=== PATIENT | male | born 1955 | race African-American/Black ===

== ENCOUNTER 2022-09-04 23:32 | Emergency (ER) | payer OTHER, SELFPAY ==
--- NOTE | ~2022-09-04 | CT_ITS ---
EXAMINATION: CT thoracic lumbar wo con DATE: 09/05/2022 02:19 INDICATION: Unwitnessed fall. Back pain. TECHNIQUE: Computed tomography (CT) of the thoracic and lumbar spine was performed without intravenou s contrast. Automated exposure control and iterative reconstruction technique were employed. Exam dos e: 2049.79 mGy-cm total exam DLP. COMPARISON: None FINDINGS: Incidentally noted is bullous emphysema. Degenerative disease of the lower cervical spine. There is degenerative spurring of the thoracic spine. No thoracic spine fracture or dislocation or doreen ne destruction is detected. There are bilateral L5 pars interarticularis defects with grade 1 anterolisthesis at L5-S1. There is severe degenerative disc disease at L5-S1. The remaining lumbar interspaces are well preserved. There is degenerative spurring throughout the lyndsey mbar spine. Degenerative change at the lumbar apophyseal joints as well. The sacroiliac joints are intact.. IMPRESSION: Degenerative spurring of the thoracic spine Bilateral L5 pars interarticularis defects with grade 1 anterolisthesis at L5-S1 Severe degenerative disc disease at L5-S1 Reviewed, dictated and finalized at [facility]. Reviewed, dictated and finalized at [facility]. LE AND HEEL STIFFENER IMPRESSION: Degenerative spurring of the thoracic spine Bilateral L5 pars interarticularis defects with grade 1 anterolisthesis at L5-S 1 Severe degenerative disc disease at L5-S1
--- NOTE | ~2022-09-04 | CT_ITS ---
EXAMINATION: CT brain wo con DATE: 09/05/2022 02:18 INDICATION: Fall TECHNIQUE: Computed tomography (CT) of the head was performed without intravenous contrast. The mA wa s adjusted according to patient size. Iterative reconstruction technique was employed. Exam dose: 10 59.33 mGy-cm total exam DLP. COMPARISON: None FINDINGS: Examination is limited due to motion artifact. Status post bilateral upper convexity craniotomies There is an acute subdural hematoma in the left frontal parietal area, measuring up to 7 mm thickness . There is central and cortical cerebral and cerebellar atrophy. Cerebral atherosclerosis and probable chronic small vessel ischemic changes of the cerebral white mat ter. No intracranial mass lesion or significant midline shift or mass effect is noted. IMPRESSION: 7 mm thick acute left frontoparietal subdural hematoma Cerebral atherosclerosis and chronic small vessel ischemic changes of the cerebral white matter Status post bilateral upper convexity craniotomies Reviewed, dictated and finalized at [facility]. Reviewed, dictated and finalized at [facility]. RANCE PROCESSING CLERK IMPRESSION: 7 mm thick acute left frontoparietal subdural hematoma Cerebral atherosclerosis and chronic small vessel ischemic changes of the cereb ral white matter Status post bilateral upper convexity craniotomies
--- NOTE | ~2022-09-04 | CT_ITS ---
EXAMINATION: CT cervical spine wo con DATE: 09/05/2022 02:19 INDICATION: Unwitnessed fall. Neck and back pain TECHNIQUE: Computed tomography (CT) of the cervical spine was performed without intravenous contrast. Automated exposure control and iterative reconstruction technique were employed. Exam dose: 301.68 mGy-cm total exam DLP. COMPARISON: None FINDINGS: Incomplete posterior C1 arch, likely congenital.. There is reversal of cervical curvature which may be due to muscle spasm and/or positioning. C1 and C2 are normally aligned and the odontoid process is intact. No fracture or dislocation or locked facet or prevertebral soft tissue swelling. Prominent anterior spurring is noted from C3 through the upper thoracic spine, with severe degenerati ve disc disease/intervertebral disc space loss of height at C5-6 and C6-7. There is prominent uncovertebral joint spurring from throughout the cervical spine. Bullous emphysema is noted at the lung apices. IMPRESSION: Reversal cervical curvature Prominent cervical spondylosis No fracture or dislocation or locked facet Bullous emphysema Reviewed, dictated and finalized at [facility]. Reviewed, dictated and finalized at location [facility]. ECHNICIAN
[2022-09-04 23:28] VITALS: BP 135/104; PULSE 74; RESP 18; TEMP 36.4; O2SAT 100
--- NOTE | 2022-09-04 23:45 | ED.FALL ---
HPI - Fall General Chief Complaint: Fall Stated Complaint: unwitt fall from w/c, c/o back pain Time Seen by Provider: 09/04/22 23:35 History of Present Illness HPI Narrative: Patient is a 67-year-old male with a history of dementia, schizophrenia presenting after an unwitnessed fall. Patient is a nursing facility resident and he fell from his wheelchair in a common area. It was unwitnessed. Afterwards, he was complaining of lower back pain. Patient is a very poor historian due to his dementia and schizophrenia. He is yelling unintelligibly. States that he wants to give the nurse peanut butter. Moving all extremities spontaneously. Related Data Home Medications Medication Instructions Recorded Confirmed bisacodyl 5 mg tablet,delayed mg PO 09/04/22 release docusate sodium 100 mg capsule mg PO 09/04/22 hydrochlorothiazide 12.5 mg tablet mg 09/04/22 hydroxyzine pamoate 25 mg capsule mg 09/04/22 losartan 25 mg tablet mg 09/04/22 magnesium citrate (Citroma oral ml 09/04/22 solution) magnesium hydroxide 400 mg/5 mL 09/04/22 oral suspension (Milk of Magnesia) risperidone 0.25 mg tablet mg 09/04/22 risperidone 0.5 mg tablet mg 09/04/22 (Risperdal) risperidone 1 mg tablet (Risperdal) mg 09/04/22 trazodone 50 mg tablet mg 09/04/22 Allergies Allergy/AdvReac Type Severity Reaction Status Date / Time No Known Allergies Allergy Verified 09/04/22 23:37 Review of Systems Review of Systems: ROS unobtainable: Yes unobtainable due to mental status Exam Narrative: GENERAL: Elderly man calling out unintelligibly HEAD: Normocephalic, atraumatic. EYES: PERRLA and EOMI. ENT: Nares clear, no rhinorrhea or epistaxis. Mucous membranes moist. NECK: C-collar in place CHEST: Clear to auscultation. No respiratory distress. HEART: Regular rate and rhythm. No murmur heard. Normal peripheral pulses. ABDOMEN: Soft, nontender, nondistended, normal active bowel sounds. BACK: Mild tenderness of lower lumbar spine EXTREMITIES: Normal range of motion. No edema. SKIN: Warm, dry, no rash. NEURO: Moving all extremities spontaneously, calling out nonsensical things Course Vital Signs Vital signs: Vital Signs Temperature 97.6 F 09/04/22 23:28 Pulse Rate 74 09/04/22 23:28 Respiratory Rate 18 09/04/22 23:28 Blood Pressure 135/104 H 09/04/22 23:28 Pulse Oximetry 100 09/04/22 23:28 Oxygen Delivery Room Air 09/04/22 23:28 Temperature 97.6 F 09/04/22 23:28 Pulse Rate 71 09/05/22 05:45 Respiratory Rate 14 09/05/22 05:45 Blood Pressure 127/79 09/05/22 05:45 Pulse Oximetry 98 09/05/22 05:45 Oxygen Delivery Room Air 09/04/22 23:28 MDM - Fall MDM Narrative Medical decision making narrative: Patient is a 67-year-old male presenting after an unwitnessed fall at his nursing facility. CT head concerning for left-sided subdural hematoma. There do not appear to be any new neurologic deficits but the patient is unable to participate with a neuro exam due to his baseline dementia and schizophrenia. I spoke with our neurosurgeon who advises he be transferred to higher level of care. I spoke with Dr. Dolan at [facility] who has accepted the patient for transfer. Patient transferred in serious condition. Lab Data 09/05/22 04:23 09/05/22 04:23 Labs: Lab Results 09/05/22 09/05/22 09/05/22 Range/Units 04:23 04:23 04:23 WBC 4.9 (4.5-10.0) K/mm3 RBC 3.52 L (4.6-6.20) M/mm3 Hgb 10.4 L (14.0-18.0) g/dL Hct 31.8 L (42.0-52.0) % MCV 90.3 (80-100) fl MCH 29.5 (26-34) pg MCHC 32.7 (32-36) g/dl RDW 13.5 (11.5-14.5) % Plt Count 181 (150-375) k/mm3 MPV 9.6 (7.4-10.4) fl Immature Gran % (Auto) 0.2 (0-0.5) % Neut % (Auto) 46.0 (45.5-73.1) % Lymph % (Auto) 43.5 (18.3-44.2) % [place] % (Auto) 8.7 H (2.6-8.5) % Eos % (Auto) 1.4 (0-4.4) % Baso % (Auto) 0.2 (0.2-1.2) % Lymph # (Auto) 2.15
--- NOTE | 2022-09-05 01:10 | PC.NURSE ---
Assumed care of pt at this time.
[2022-09-05 04:22] VITALS: BP 122/77; PULSE 90; RESP 18; O2SAT 100
[2022-09-05 04:32] LABS: Basophils Percent Auto 0.2 % (0.2-1.2); Eosinophils Absolute Auto 0.1 K/mm3 (0-0.3); Eosinophils Percent Auto 1.4 % (0-4.4); Hematocrit 31.8 % (42.0-52.0); Hemoglobin 10.4 g/dL (14.0-18.0); Immature Granulocyte Absolute 0.01 K/mm3 (0.00-0.031); Immature Granulocyte Percent A 0.2 % (0-0.5); Lymphocytes Absolute Auto 2.15 K/mm3 (0.9-3.2); Lymphocytes Percent Auto 43.5 % (18.3-44.2); Mean Corpuscular HGB Conc 32.7 g/dl (32-36); Mean Corpuscular Hemoglobin 29.5 pg (26-34); Mean Corpuscular Volume 90.3 fl (80-100); Mean Platelet Volume 9.6 fl (7.4-10.4); Monocytes Absolute Auto 0.4 K/mm3 (0.1-0.6); Monocytes Percent Auto 8.7 % (2.6-8.5); Neutrophils Absolute Auto 2.3 K/mm3 (1.3-6.7); Platelet Count Result 181 k/mm3 (150-375); Red Blood Count 3.52 M/mm3 (4.6-6.20); Red Cell Distribution Width 13.5 % (11.5-14.5); White Blood Count 4.9 K/mm3 (4.5-10.0)
--- NOTE | 2022-09-05 04:37 | PC.NURSE ---
pt.'s neuro status unchanged since arrival; and upon arrival at baseline per EMS based on information received from [facility]. Pt.'s quality of speech normal if he is not yelling; speech rambling, random and inappropriate. Pt. oriented to self only. Moving all extremities.
[2022-09-05 04:42] LABS: INR 1.1; Prothrombin Time 13.8 Seconds (11.1-14.7)
[2022-09-05 04:43] LABS: Partial Thromboplastin Time 34.5 SECONDS (22.3-36.8)
[2022-09-05 04:44] LABS: Anion Gap 8 mmol/L (8-16); Blood Urea Nitrogen 26 mg/dL (9-20); Calcium 8.2 mg/dL (8.4-10.2); Carbon Dioxide 26 mmol/L (22-30); Chloride 102 mmol/L (98-107); Estimated Glomerular Filt Rate > 60; Glucose 129 mg/dL (65-110); Potassium 3.8 mmol/L (3.4-5.0); Sodium 136 mmol/L (137-145)
[2022-09-05 05:12] VITALS: BP 111/75; PULSE 73; RESP 16
--- NOTE | 2022-09-05 05:13 | PC.NURSE ---
Attempted to call report to [facility] ED at this time. Was told to call back in 20-30 minutes as no one was available to take report.
[2022-09-05 05:45] VITALS: BP 127/79; PULSE 71; RESP 14; O2SAT 98
== END 2022-09-05 05:45 | disposition short-term general hospital (02) ==
PROVIDERS: Emergency Provider Emergency Medicine
DX: S06.5XAA Traumatic subdural hemorrhage with loss of consciousness status unknown, initial encounter (principal); F03.911 Unspecified dementia, unspecified severity, with agitation; F20.9 Schizophrenia, unspecified; W05.0XXA Fall from non-moving wheelchair, initial encounter
CPT/HCPCS: 36415; 70450; 72125; 72128; 72131; 80048; 85025; 85610; 85730; 96365; 99285; J0131

== ENCOUNTER 2022-11-13 11:15 | Observation (INO) | payer OTHER, SELFPAY ==
[2022-11-13] VITALS (12 sets, daily range): BP systolic 117–162; BP diastolic 63–109; PULSE 56–94; RESP 10–20; TEMP 36.5–36.7; O2SAT 97–100; BMI 24.7
--- NOTE | ~2022-11-13 | CT_ITS ---
EXAMINATION: CT brain wo con INDICATION: Headache COMPARISON: 09/05/2022 TECHNIQUE: Standard unenhanced head CT. The dose-length product (DLP) was 908.00 mGy-cm. The mA was a djusted according to patient size. Iterative reconstruction technique was employed. FINDINGS: There is a small, chronic appearing left subdural hematoma with decrease in size since the comparison CT. There is no acute intraparenchymal hemorrhage. No evidence of mass lesion. No evidence of acute infarction. There is mild periventricular and subcortical hypodensity probably related to s mall vessel ischemic disease. There is mild prominence of the sulci and ventricles related to cerebra l atrophy. Intracranial calcified cerebral atherosclerosis is noted. There is no mass effect or midli ne shift. The orbits and soft tissues are unremarkable. There is mild mucosal thickening of the paran gladys sinuses. There are bifrontal craniotomy changes. IMPRESSION: 1. Chronic left subdural hematoma with decrease in size since the comparison CT. 2. Age related findings. Reviewed, dictated and finalized at location [facility]. GER NIGHT IMPRESSION: 1. Chronic left subdural hematoma with decrease in size since the comparison CT . 2. Age related findings.
--- NOTE | ~2022-11-13 | XR_ITS ---
Supine and upright views of the abdomen Clinical history: Abdominal pain Findings: Bowel gas pattern is nonspecific. No evidence for obstruction or free air. No abnormal mass lesion or calcification is seen. Osseous structures are intact. Impression: No significant abnormality is seen. Reviewed, dictated and finalized at [facility]. N RESOURCES BENEFITS SPECIALIST Impression: No significant abnormality is seen.
--- NOTE | ~2022-11-13 | XR_ITS ---
EXAMINATION: XR chest 1V portable INDICATION: Altered mental status and weakness TECHNIQUE: Portable AP chest at 1148 hours COMPARISON: None available FINDINGS: The patient is rotated. There are minimal airspace opacities of the right lung base. No ple ural effusion or pneumothorax. The cardiomediastinal silhouette is normal. IMPRESSION: 1. Minimal right basilar airspace opacity, consistent with atelectasis versus pneumonia. Reviewed, dictated and finalized at location [facility]. TRIC ORGAN CHECKER IMPRESSION: 1. Minimal right basilar airspace opacity, consistent with atelectasis versus p neumonia.
--- NOTE | 2022-11-13 11:29 | ECG_ITS ---
Measurements Intervals [place] Rate: 69 P: 34 CA: 169 QRS: 2 QRSD: 85 T: 9 QT: 392 QTc: 421 Interpretive Statements SINUS RHYTHM NORMAL ECG NO PREVIOUS ECG AVAILABLE FOR COMPARISON Electronically Signed On 11-13-2022 12:50:41 [employer]RE SHOP MECHANIC by Chadd Sotelo M.D.
--- NOTE | 2022-11-13 11:31 | ED.AMS ---
HPI - Altered Mental Status General Chief Complaint: Altered Mental Status Stated Complaint: AMS, LETHARGIC, DECREASE PO INTAKE Time Seen by Provider: 11/13/22 11:22 History of Present Illness HPI narrative: Patient is a 67-year-old male with a history of schizophrenia, traumatic subdural hematoma, here from his nursing facility due to lethargy over the past 3 days. According to nursing staff, patient is usually aggressive although his baseline is ANO x1. Over the past several days patient has had decreased p.o. intake, has been less aggressive than usual and has been acting lethargic. Reportedly they attempted to get labs but were unable to obtain access. Patient does not provide any history, although he is alert and follows commands. Denies any pain. Related Data Home Medications Medication Instructions Recorded Confirmed bisacodyl 5 mg tablet,delayed mg PO 09/04/22 release docusate sodium 100 mg capsule mg PO 09/04/22 hydrochlorothiazide 12.5 mg tablet mg 09/04/22 hydroxyzine pamoate 25 mg capsule mg 09/04/22 losartan 25 mg tablet mg 09/04/22 magnesium citrate (Citroma oral ml 09/04/22 solution) magnesium hydroxide 400 mg/5 mL 09/04/22 oral suspension (Milk of Magnesia) risperidone 0.25 mg tablet mg 09/04/22 risperidone 0.5 mg tablet mg 09/04/22 (Risperdal) risperidone 1 mg tablet (Risperdal) mg 09/04/22 trazodone 50 mg tablet mg 09/04/22 Allergies Allergy/AdvReac Type Severity Reaction Status Date / Time No Known Allergies Allergy Verified 11/13/22 11:21 Review of Systems Review of Systems: ROS unobtainable: Yes unobtainable due to mental status Exam Narrative: APPEARANCE: Alert, frail-appearing, avoids eye contact Head: Normocephalic and atraumatic. EYES: PERRLA/EOMI, conjunctivae clear NOSE: No nasal drainage EARS: External ear normal in appearance THROAT: Oropharynx is clear. Mucous membranes are moist. NECK: Supple. No adenopathy, no masses. RESPIRATORY: Airway patent, respirations nonlabored. Clear to auscultation bilaterally, no rales, rhonchi, wheezing. CARDIOVASCULAR: Regular rate and rhythm without murmurs, rubs, or gallops. ABDOMINAL: Normoactive bowel sounds. Soft, nontender, nondistended. No rebound tenderness or guarding. MUSCULOSKELETAL: Extremities are warm and well-perfused. Moves all extremities well. No edema. NEURO: Alert and oriented x1. No focal neurologic deficits. SKIN: Skin is warm and dry. No rashes. PSYCHIATRIC: Normal affect/mood. Course Vital Signs Vital signs: Vital Signs Temperature 97.7 F 11/13/22 11:13 Pulse Rate 70 11/13/22 11:13 Respiratory Rate 16 11/13/22 11:13 Blood Pressure 139/99 H 11/13/22 11:13 Pulse Oximetry 100 11/13/22 11:13 Oxygen Delivery Room Air 11/13/22 11:13 Temperature 97.7 F 11/13/22 11:13 Pulse Rate 72 11/13/22 14:01 Respiratory Rate 20 11/13/22 14:01 Blood Pressure 157/108 H 11/13/22 14:01 Pulse Oximetry 99 11/13/22 14:01 Oxygen Delivery Room Air 11/13/22 11:13 MDM - Altered Mental Status MDM Narrative Medical decision making narrative: 67-year-old male here for evaluation of decreased p.o., increased lethargy and confusion from his nursing facility. Patient is alert and oriented x1 which is his baseline, is lethargic in appearance. Vital signs are normal. Patient BUN is elevated at 28. He is slightly pancytopenic with a white blood cell count of 3.5, hemoglobin of 12.3, platelets of 143. Spoke with nurse at facility who had labs 2 months ago that were reportedly normal and did not reflect pancytopenia. Chest x-ray shows atelectasis versus pneumonia. Head CT without acute findings. Urinalysis without evidence of infection. COVID and flu are negative. Unclear etiology of patient's mental status changes, given that his BUN is elevated and that he has not been eating or drinking, may benefit from observation with fluids. Spoke with Claudette, hospitalist FISHER SPEAR, agrees with plan f
[2022-11-13 12:02] LABS: Basophils Percent Auto 0.3 % (0.2-1.2); Eosinophils Percent Auto 1.2 % (0-4.4); Hematocrit 37.3 % (42.0-52.0); Hemoglobin 12.3 g/dL (14.0-18.0); Immature Granulocyte Absolute 0.01 K/mm3 (0.00-0.031); Immature Granulocyte Percent A 0.3 % (0-0.5); Immature Platelet Fraction Pct 4.3 % (0.9-11.2); Lymphocytes Absolute Auto 1.61 K/mm3 (0.9-3.2); Lymphocytes Percent Auto 46.4 % (18.3-44.2); Mean Corpuscular Hemoglobin 29.1 pg (26-34); Mean Corpuscular Volume 88.4 fl (80-100); Mean Platelet Volume 9.8 fl (7.4-10.4); Monocytes Absolute Auto 0.3 K/mm3 (0.1-0.6); Monocytes Percent Auto 8.9 % (2.6-8.5); Neutrophils Absolute Auto 1.5 K/mm3 (1.3-6.7); Neutrophils Percent Auto 42.9 % (45.5-73.1); Platelet Count Result 143 k/mm3 (150-375); Red Blood Count 4.22 M/mm3 (4.6-6.20); Red Cell Distribution Width 13.1 % (11.5-14.5); White Blood Count 3.5 K/mm3 (4.5-10.0)
[2022-11-13 12:12] LABS: Alanine Aminotransferase 17 U/L (6-50); Albumin Level 3.7 g/dL (3.5-5.1); Alkaline Phosphatase 50 U/L (38-126); Anion Gap 2 mmol/L (8-16); Aspartate Amino Transferase 25 U/L (17-59); Blood Urea Nitrogen 28 mg/dL (9-20); Calcium 8.8 mg/dL (8.4-10.2); Carbon Dioxide 33 mmol/L (22-30); Chloride 103 mmol/L (98-107); Estimated CRCL calculation 62 ml/min; Estimated Glomerular Filt Rate > 60; Glucose 91 mg/dL (65-110); Phosphorus 3.6 mg/dL (2.5-4.5); Potassium 4.1 mmol/L (3.4-5.0); Sodium 138 mmol/L (137-145)
[2022-11-13 12:39] LABS: Ammonia < 9 umol/L (9-30)
[2022-11-13] MEDS: SODIUM CHLORIDE 0.9% IV 1,000 ML 999 ML IV CONT (12:54)
[2022-11-13 13:36] LABS: Appearance Urine Cloudy (Clear); Bilirubin Urine Negative (Negative); Blood Urine Negative (Negative); Color Urine Yellow (Yellow); Glucose Urine UA Negative (Negative); Ketones Urine Negative (Negative); Leukocyte Esterase Ur Negative LEU/UL (Negative); Nitrate Urine Negative (Negative); Protein Urine Negative (Negative); Urobilinogen Urine 0.2 mg/dL (<2.0); pH Urine 8.5 (5.0-9.0)
[2022-11-13 13:38] LABS: Influenza A QL RT-PCR Negative (Negative); Influenza B QL RT-PCR Negative (Negative); SARS-CoV-2 RNA PCR Negative
[2022-11-13 13:44] LABS: Amorphous Sediment Urine Moderate; RBC Urine 0-2 /hpf (0-2); Squamous Epithelial Cell Urine Rare /hpf (Few); WBC Urine 0-3 /hpf
[2022-11-13 13:45] LABS: Add Urine Microscopic? YES
--- NOTE | 2022-11-13 15:41 | PM.IMHP ---
H&P: HPI History of Present Illness Date/Time: 11/13/22 15:41 Chief Complaint: Altered mental status Narrative: This is a 67-year-old male patient who resides at [facility]. The patient has a history of schizophrenia and traumatic subdural hematoma. The patient has become more lethargic over the last 3 days. I asked the patient how he felt he stated that he has not been eating over the last several days. It is reported that he has had decreased oral intake and has been less aggressive than usual. The patient has been pleasant to me and ate half of a peanut butter and jelly sandwich for me while I was in the emergency room with him. Reportedly they attempted stat labs and were not able to obtain access at the time. The patient is able to respond to me and answer some questions. He did not know what month it was or where he is. He knew who he was any stated that he had 1 daughter. His white count 3.5. His H&H is 12.3 and 37.3. Platelets 143. Ammonia level is normal. Influenza a B and COVID are negative. Chest x-ray was read as minimal right basilar airspace opacities consistent with atelectasis versus pneumonia. Head CT was read as chronic left subdural hematoma with decrease in size since the comparison CT. Age-related findings. Patient was given IV fluids. Patient was admitted to observation status on the date of service of 11/13/2022. Review of Systems Review of Systems: See HPI All systems reviewed & are unremarkable except as noted in HPI and below Constitutional: Constitutional: Reports as per HPI and Reports no additional constitutional complaints Eyes: Eyes: Reports as per HPI and Reports no additional eye complaints ENT: Reports system reviewed and no additional complaints, except as documented and Reports Normal hearing present Cardiovascular: Cardiovascular: Reports no additional cardiovascular complaints Respiratory: Respiratory: Reports no additional respiratory complaints and Reports no additional respiratory complaints Gastrointestinal: Gastrointestinal: Reports as per HPI and Reports no additional gastrointestinal complaints Musculoskeletal: Musculoskeletal: Reports no additional musculoskeletal complaints Integumentary/Breasts: Skin/Breast: Reports system reviewed and no additional complaints, except as docu and Reports as per HPI Neurologic: Reports system reviewed and no additional complaints, except as documented, Reports as per HPI and Reports Normal hearing present Psychiatric: Psychiatric: Reports no additional psychiatric complaints and Reports as per HPI Endocrine: Endocrine: Reports no additional endocrine complaints Hematologic/Lymphatic: Hematologic/Lymphatic: Reports no additional hematologic/lymphatic complaints Allergic/Immunologic: Allergic/Immunologic: Reports no additional allergic/immunologic complaints [facility] Past Medical History Medical History (Updated 11/13/22 @ 17:51 by Claudette Garcia NP) Chronic renal failure, stage 3 (moderate) Delirium Dementia Hyperlipidemia Hypertension Rotator cuff tear Schizophrenia Surgical History Surgical History (Updated 11/13/22 @ 17:51 by Claudette Garcia NP) S/P rotator cuff repair Family History Family History (Updated 11/13/22 @ 17:52 by Claudette Garcia NP) Unknown Family history unknown Social History Social History (Updated 11/13/22 @ 17:54 by Claudette Garcia NP) Social History: one daughter. The patient resides at [facility]. The patient is retired. He is single. Code status full code Smoking status: Unknown if ever smoked Alcohol intake: never Substance use: never Substance use type: does not use Spiritual care concerns: No Meds Home Medications and Allergies Home Medications Medication Instructions Recorded Confirmed Type bisacodyl 5 mg tablet,delayed 5 mg PO PRN PRN Constipation 09/04/22 11/13/22 History release docusate sodium 100 mg
[2022-11-13] MEDS: hydrALAZINE HCL 20 MG/ML VIAL 10 MG IV PUSH (16:03)
--- NOTE | 2022-11-13 17:03 | PC.NURSE ---
This patient, Jonatan Rojo, was admitted to Medical Room 341-01. Patient/family oriented to hospital policies and general routines including ID bracelet, bed and alarms, visiting hours, pain management, procedures, bathroom and other care routines, personal items, smoking policy, room service/diet, and visiting hours. Information on how to activate the Rapid Response Team has been discussed. Patient/Family are encouraged to report perceived risks to care and to ask questions if they do not understand what they are told or what they should do.
[2022-11-13] MEDS: LACTATED RINGERS 1,000 ML 125 ML IV CONT (18:34)
[2022-11-13] MEDS: traZODone HCL 25 MG TABLET 75 MG PO (19:34)
[2022-11-13] MEDS: ATORVASTATIN 10 MG TABLET PO (19:34)
[2022-11-13] MEDS: risperiDONE 1 MG TABLET 2 MG PO (19:35)
[2022-11-13] MEDS: MELATONIN 3 MG TABLET PO (19:35)
[2022-11-14] MEDS: OLANZapine 10 MG INJ VIAL 5 MG IM (01:28)
[2022-11-14] MEDS: WATER, STERILE FOR INJECTION 10 ML VIAL XX (01:29)
[2022-11-14 05:49] VITALS: BP 162/77; PULSE 81; RESP 20; TEMP 36.6; O2SAT 93
[2022-11-14 10:39] LABS: Basophils Percent Auto 0.2 % (0.2-1.2); Eosinophils Percent Auto 0.4 % (0-4.4); Hematocrit 36.4 % (42.0-52.0); Hemoglobin 12.2 g/dL (14.0-18.0); Immature Granulocyte Absolute 0.01 K/mm3 (0.00-0.031); Immature Granulocyte Percent A 0.2 % (0-0.5); Lymphocytes Absolute Auto 1.35 K/mm3 (0.9-3.2); Mean Corpuscular HGB Conc 33.5 g/dl (32-36); Mean Corpuscular Hemoglobin 29.1 pg (26-34); Mean Corpuscular Volume 86.9 fl (80-100); Mean Platelet Volume 9.1 fl (7.4-10.4); Monocytes Absolute Auto 0.4 K/mm3 (0.1-0.6); Monocytes Percent Auto 8.2 % (2.6-8.5); Neutrophils Absolute Auto 3.6 K/mm3 (1.3-6.7); Platelet Count Result 164 k/mm3 (150-375); Red Blood Count 4.19 M/mm3 (4.6-6.20); Red Cell Distribution Width 12.8 % (11.5-14.5); White Blood Count 5.4 K/mm3 (4.5-10.0)
[2022-11-14 10:40] VITALS: BMI 11.0
[2022-11-14 10:49] LABS: Lactic Acid Reflex 0.8 mmol/L (0.7-2.0)
[2022-11-14 10:51] VITALS: BMI 11.0
[2022-11-14 10:52] LABS: Alanine Aminotransferase 17 U/L (6-50); Albumin Level 3.9 g/dL (3.5-5.1); Alkaline Phosphatase 61 U/L (38-126); Anion Gap 3 mmol/L (8-16); Aspartate Amino Transferase 27 U/L (17-59); Bilirubin,Total 0.9 mg/dL (0.2-1.3); Blood Urea Nitrogen 21 mg/dL (9-20); Calcium 8.7 mg/dL (8.4-10.2); Carbon Dioxide 26 mmol/L (22-30); Chloride 103 mmol/L (98-107); Estimated CRCL calculation 77 ml/min; Estimated Glomerular Filt Rate > 60; Glucose 114 mg/dL (65-110); Magnesium 1.9 mg/dL (1.6-2.3); Potassium 3.8 mmol/L (3.4-5.0); Sodium 132 mmol/L (137-145)
--- NOTE | 2022-11-14 11:40 | PM.IMPN ---
Progress Note: A&P Assessment and Plan (1) Altered mental status: Code(s): R41.82 - Altered mental status, unspecified Status: Acute Assessment and Plan: The patient is awake and talking now. He is not agitated he is very calm and friendly. The patient may have been dehydrated he tells me that he has not been eating and drinking very well. The patient seemed to perk up after he received some IV fluids. 11/14/2022 interval history: patient is 67-year-old male resident of nursing history of schizophrenia and and traumatic subdural hematoma, has not been taking his medications for some time and was not cooperating and the nursing and was refusing p.o. intake, unfortunately not taking his medication not communicating, upon arrival there was a concern for pancytopenia however repeat labs this morning showed white count, hemoglobin and platelet a close to normal, will continue to monitor have PT OT evaluate the patient and further recommendation to follow. (2) Pancytopenia: Code(s): D61.818 - Other pancytopenia Status: Acute Assessment and Plan: Hematology has been consulted. (3) Hypertension: Code(s): I10 - Essential (primary) hypertension Status: Acute Assessment and Plan: -hold hydrochlorothiazide at this time. The patient will be dehydrated. P.r.n. hydralazine (4) Schizophrenia: Code(s): F20.9 - Schizophrenia, unspecified Status: Acute Assessment and Plan: Continue with risperdal and trazodone (5) Dementia: Code(s): F03.90 - Unspecified dementia, unspecified severity, without behavioral disturbance, psychotic disturbance, mood disturbance, and anxiety Status: Acute Assessment and Plan: The patient is orientated to himself and from what I was told this is his baseline. (6) Chronic renal failure, stage 3 (moderate): Code(s): N18.30 - Chronic kidney disease, stage 3 unspecified Status: Acute Assessment and Plan: GFR is greater than 60 and his BUN is 28 with creatinine of 1 which is normal limits. (7) Hyperlipidemia: Code(s): E78.5 - Hyperlipidemia, unspecified Status: Acute Assessment and Plan: Continue with atorvastatin. Subjective Date/time seen: 11/14/22 11:40 Altered mental status HPI-Narrative: This is a 67-year-old male patient who resides at [facility].? The patient has a history of schizophrenia and traumatic subdural hematoma.? The patient has become more lethargic over the last 3 days.? I asked the patient how he felt he stated that he has not been eating over the last several days.? It is reported that he has had decreased oral intake and has been less aggressive than usual.? The patient has been pleasant to me and ate half of a peanut butter and jelly sandwich for me while I was in the emergency room with him.? Reportedly they attempted stat labs and were not able to obtain access at the time.? The patient is able to respond to me and answer some questions.? He did not know what month it was or where he is.? He knew who he was any stated that he had 1 daughter.? His white count 3.5.? His H&H is 12.3 and 37.3.? Platelets 143.? Ammonia level is normal.? Influenza a B and COVID are negative.? Chest x-ray was read as minimal right basilar airspace opacities consistent with atelectasis versus pneumonia.? Head CT was read as chronic left subdural hematoma with decrease in size since the comparison CT.? Age-related findings.? Patient was given IV fluids.? Patient was admitted to observation status on the date of service of 11/13/2022. 11/14/2022 interval history: patient is 67-year-old male resident of nursing history of schizophrenia and and traumatic subdural hematoma, has not been taking his medications for some time and was not cooperating and the nursing and was refusing p.o. intake, unfortunately not taking his medication not communicating, upon arrival there was a concern for
--- NOTE | 2022-11-14 12:15 | PC.NURSE ---
Patient is not oriented enough to swallow medications at this time. Will not follow commands. Hospitalist Matilde aware of situation.
[2022-11-14 14:38] VITALS: BP 161/96; PULSE 85; RESP 18; TEMP 36.6; O2SAT 100
[2022-11-14] MEDS: LACTATED RINGERS 1,000 ML 125 ML IV CONT (16:01)
[2022-11-14 19:40] VITALS: BP 158/77; PULSE 77; RESP 20; TEMP 36.6; O2SAT 97
[2022-11-14 20:00] VITALS: PULSE 77; RESP 20; O2SAT 97
[2022-11-14] MEDS: ATORVASTATIN 10 MG TABLET PO (20:09)
[2022-11-14] MEDS: MELATONIN 3 MG TABLET PO (20:09)
[2022-11-14] MEDS: traZODone HCL 25 MG TABLET 75 MG PO (20:10)
[2022-11-14] MEDS: risperiDONE 1 MG TABLET 2 MG PO (20:10)
[2022-11-15] MEDS: LACTATED RINGERS 1,000 ML 125 ML IV CONT ×2 (01:38→10:44)
[2022-11-15 04:40] VITALS: BP 160/81; PULSE 82; RESP 20; TEMP 36.5; O2SAT 98
[2022-11-15 05:45] LABS: Hematocrit 35.1 % (42.0-52.0); Hemoglobin 11.8 g/dL (14.0-18.0); Mean Corpuscular HGB Conc 33.6 g/dl (32-36); Mean Corpuscular Hemoglobin 28.9 pg (26-34); Mean Corpuscular Volume 85.8 fl (80-100); Mean Platelet Volume 9.2 fl (7.4-10.4); Platelet Count Result 167 k/mm3 (150-375); Red Blood Count 4.09 M/mm3 (4.6-6.20); Red Cell Distribution Width 12.8 % (11.5-14.5); White Blood Count 6.7 K/mm3 (4.5-10.0)
[2022-11-15 05:58] LABS: Magnesium 1.8 mg/dL (1.6-2.3)
[2022-11-15 07:58] LABS: Anion Gap 4 mmol/L (8-16); Blood Urea Nitrogen 17 mg/dL (9-20); Calcium 8.9 mg/dL (8.4-10.2); Carbon Dioxide 27 mmol/L (22-30); Chloride 98 mmol/L (98-107); Estimated CRCL calculation 69 ml/min; Estimated Glomerular Filt Rate > 60; Glucose 124 mg/dL (65-110); Potassium 3.8 mmol/L (3.4-5.0); Sodium 129 mmol/L (137-145)
[2022-11-15 12:31] VITALS: BMI 24.7
--- NOTE | 2022-11-15 13:24 | PM.IMPN ---
Progress Note: A&P Assessment and Plan (1) Altered mental status: Code(s): R41.82 - Altered mental status, unspecified Status: Acute Assessment and Plan: The patient is awake and talking now. He is not agitated he is very calm and friendly. The patient may have been dehydrated he tells me that he has not been eating and drinking very well. The patient seemed to perk up after he received some IV fluids. 11/15/2022 interval history: patient is 67-year-old male resident of nursing history of schizophrenia and traumatic subdural hematoma, has not been taking his medications for some time and was not cooperating at the senior living and was refusing p.o. intake, unfortunately not taking his medication not communicating, upon arrival there was a concern for pancytopenia however repeat labs showed white count, hemoglobin and platelet a close to normal, patient had an Emesis last night, today KUB is normal, and patient is more cooperative today ate his lunch. will continue to monitor have PT OT evaluate the patient and further recommendation to follow. (2) Pancytopenia: Code(s): D61.818 - Other pancytopenia Status: Acute Assessment and Plan: Hematology has been consulted. (3) Hypertension: Code(s): I10 - Essential (primary) hypertension Status: Acute Assessment and Plan: -hold hydrochlorothiazide at this time. The patient will be dehydrated. P.r.n. hydralazine (4) Schizophrenia: Code(s): F20.9 - Schizophrenia, unspecified Status: Acute Assessment and Plan: Continue with risperdal and trazodone (5) Dementia: Code(s): F03.90 - Unspecified dementia, unspecified severity, without behavioral disturbance, psychotic disturbance, mood disturbance, and anxiety Status: Acute Assessment and Plan: The patient is orientated to himself and from what I was told this is his baseline. (6) Chronic renal failure, stage 3 (moderate): Code(s): N18.30 - Chronic kidney disease, stage 3 unspecified Status: Acute Assessment and Plan: GFR is greater than 60 and his BUN is 28 with creatinine of 1 which is normal limits. (7) Hyperlipidemia: Code(s): E78.5 - Hyperlipidemia, unspecified Status: Acute Assessment and Plan: Continue with atorvastatin. Subjective Date/time seen: 11/15/22 13:24 The patient is awake and talking now. He is not agitated he is very calm and friendly. The patient may have been dehydrated he tells me that he has not been eating and drinking very well. The patient seemed to perk up after he received some IV fluids. 11/15/2022 interval history: patient is 67-year-old male resident of nursing history of schizophrenia and traumatic subdural hematoma, has not been taking his medications for some time and was not cooperating at the senior living and was refusing p.o. intake, unfortunately not taking his medication not communicating, upon arrival there was a concern for pancytopenia however repeat labs showed white count, hemoglobin and platelet a close to normal, patient had an Emesis last night, today KUB is normal, and patient is more cooperative today ate his lunch. will continue to monitor have PT OT evaluate the patient and further recommendation to follow. Review of Systems Review of Systems: ROS unobtainable: Yes unobtainable due to mental status Exam Narrative: Patient is comfortable, NAD HEENT: eyes are clear and none icteric LUNGS: normal respiratory effort ABD: not distended Lower extremities: no edema SKIN: nonjaundiced Neuro: grossly intact confused. Objective Data Vital Signs Vital Signs: Vital Signs - 24 hr 11/14/22 14:38 11/14/22 19:40 11/14/22 20:00 Temperature 97.9 F 97.9 F Pulse Rate 85 77 77 Respiratory Rate 18 20 20 Blood Pressure 161/96 H 158/77 H Pulse Oximetry 100 97 97 Oxygen Delivery Room Air 11/15/22 04:40 11/15/22 08:00 Temperature 97.7 F Pulse Rate 8
[2022-11-15 14:00] VITALS: BP 149/87; PULSE 78; RESP 16; TEMP 36.6; O2SAT 99
--- NOTE | 2022-11-15 18:22 | PC.NURSE ---
Patient would not swallow pills. Patient spit them back out.
[2022-11-15 20:00] VITALS: PULSE 78; RESP 16; O2SAT 99
[2022-11-15] MEDS: risperiDONE 1 MG TABLET 2 MG PO (20:38)
[2022-11-15] MEDS: traZODone HCL 25 MG TABLET 75 MG PO (20:39)
[2022-11-15] MEDS: MELATONIN 3 MG TABLET PO (20:39)
[2022-11-15] MEDS: ATORVASTATIN 10 MG TABLET PO (20:39)
[2022-11-15 21:27] VITALS: BP 150/77; PULSE 70; RESP 18; TEMP 36.7; O2SAT 99
[2022-11-16] MEDS: LACTATED RINGERS 1,000 ML 125 ML IV CONT (04:00)
[2022-11-16 05:55] LABS: Hematocrit 41.5 % (42.0-52.0); Immature Platelet Fraction Pct 1.4 % (0.9-11.2); Mean Corpuscular HGB Conc 31.3 g/dl (32-36); Mean Corpuscular Hemoglobin 29.9 pg (26-34); Mean Corpuscular Volume 95.4 fl (80-100); Mean Platelet Volume 9.8 fl (7.4-10.4); Platelet Count Result 136 k/mm3 (150-375); Red Blood Count 4.35 M/mm3 (4.6-6.20); Red Cell Distribution Width 12.8 % (11.5-14.5)
[2022-11-16 06:00] VITALS: BP 150/71; PULSE 71; RESP 18; TEMP 36.7; O2SAT 99
[2022-11-16 07:11] LABS: Anion Gap 9 mmol/L (8-16); Blood Urea Nitrogen 17 mg/dL (9-20); Calcium 8.8 mg/dL (8.4-10.2); Carbon Dioxide 22 mmol/L (22-30); Chloride 99 mmol/L (98-107); Estimated CRCL calculation 77 ml/min; Estimated Glomerular Filt Rate > 60; Glucose 102 mg/dL (65-110); Magnesium 2.1 mg/dL (1.6-2.3); Potassium 4.7 mmol/L (3.4-5.0); Sodium 130 mmol/L (137-145)
--- NOTE | 2022-11-16 12:31 | PM.DS ---
DS: Admitting Diagnosis Discharge Date 11/16/2022 Admitting Diagnosis Altered mental status DS: Discharge Diagnosis Discharge Diagnosis (1) Altered mental status: Code(s): R41.82 - Altered mental status, unspecified Status: Acute Assessment and Plan: The patient is awake and talking now. He is not agitated he is very calm and friendly. The patient may have been dehydrated he tells me that he has not been eating and drinking very well. The patient seemed to perk up after he received some IV fluids. 11/15/2022 interval history: patient is 67-year-old male resident of nursing history of schizophrenia and traumatic subdural hematoma, has not been taking his medications for some time and was not cooperating at the shelter and was refusing p.o. intake, unfortunately not taking his medication not communicating, upon arrival there was a concern for pancytopenia however repeat labs showed white count, hemoglobin and platelet a close to normal, patient had an Emesis last night, today KUB is normal, and patient is more cooperative today ate his lunch. will continue to monitor have PT OT evaluate the patient and further recommendation to follow. (2) Pancytopenia: Code(s): D61.818 - Other pancytopenia Status: Acute Assessment and Plan: Hematology has been consulted. (3) Hypertension: Code(s): I10 - Essential (primary) hypertension Status: Acute Assessment and Plan: -hold hydrochlorothiazide at this time. The patient will be dehydrated. P.r.n. hydralazine (4) Schizophrenia: Code(s): F20.9 - Schizophrenia, unspecified Status: Acute Assessment and Plan: Continue with risperdal and trazodone (5) Dementia: Code(s): F03.90 - Unspecified dementia, unspecified severity, without behavioral disturbance, psychotic disturbance, mood disturbance, and anxiety Status: Acute Assessment and Plan: The patient is orientated to himself and from what I was told this is his baseline. (6) Chronic renal failure, stage 3 (moderate): Code(s): N18.30 - Chronic kidney disease, stage 3 unspecified Status: Acute Assessment and Plan: GFR is greater than 60 and his BUN is 28 with creatinine of 1 which is normal limits. (7) Hyperlipidemia: Code(s): E78.5 - Hyperlipidemia, unspecified Status: Acute Assessment and Plan: Continue with atorvastatin. DS: Summary Hospital Course Reason for hospitalization: Altered mental status Narrative: This is a 67-year-old male patient who resides at [facility].? The patient has a history of schizophrenia and traumatic subdural hematoma.? The patient has become more lethargic over the last 3 days.? I asked the patient how he felt he stated that he has not been eating over the last several days.? It is reported that he has had decreased oral intake and has been less aggressive than usual.? The patient has been pleasant to me and ate half of a peanut butter and jelly sandwich for me while I was in the emergency room with him.? Reportedly they attempted stat labs and were not able to obtain access at the time.? The patient is able to respond to me and answer some questions.? He did not know what month it was or where he is.? He knew who he was any stated that he had 1 daughter.? His white count 3.5.? His H&H is 12.3 and 37.3.? Platelets 143.? Ammonia level is normal.? Influenza a B and COVID are negative.? Chest x-ray was read as minimal right basilar airspace opacities consistent with atelectasis versus pneumonia.? Head CT was read as chronic left subdural hematoma with decrease in size since the comparison CT.? Age-related findings.? Patient was given IV fluids.? Patient was admitted to observation status on the date of service of 11/13/2022. Hospital Course: patient is 67-year-old male resident of nursing history of schizophrenia and traumatic subdural hematoma, has not? been taking his medica
--- NOTE | 2022-11-16 12:52 | PDONCCN ---
HPI - Date of Consult Date/Time: 11/16/22 12:52 Requesting Physician: Sai Aguilera MD Primary Care Provider: UNKNOWN,DOCTOR - Consult Narrative Reason for consult: Pancytopenia Narrative: Jonatan Rojo is a 67 year old male with history of schizophrenia and dementia who is [facility]. Patient also has history of traumatic subdural hematoma. He is not a good historian I would not be able to give much history. He came into the hospital with altered mental status for 3 days duration along with lethargic and fatigued. His labs showed low white cell of 3.5 with hemoglobin of 12.3 and platelets were 143,000. Apparently there was no bleeding. Chest x-ray showed finding consistent with pneumonia versus atelectasis. CT head showed chronic left subdural hematoma. Subsequent labs showed improvement in the WBC count and platelet count with now become normal except platelet count dropped today to 136,000. Hemoglobin has also improved. Review of Systems - Review of Systems All systems reviewed & are unremarkable except as noted in HPI and bel - Neurologic Reports system reviewed and no additional complaints, except as documented, Reports hearing normal [facility] Medical History: Medical History (Last Updated 11/13/22 @ 17:51 by Claudette Garcia NP) Chronic renal failure, stage 3 (moderate) Delirium Dementia Hyperlipidemia Hypertension Rotator cuff tear Schizophrenia Surgical History: Surgical History (Last Updated 11/13/22 @ 17:51 by Claudette Garcia NP) S/P rotator cuff repair Family History: Family History (Last Updated 11/13/22 @ 17:52 by Claudette Garcia NP) Unknown Family history unknown - Social History Social History: Social History (Last Updated 11/13/22 @ 17:54 by Claudette Garcia NP) Alcohol Use: Alcohol intake: never Substance Use: Substance use: never Substance use type: does not use Others: Spiritual care concerns: No Smoking Status: Smoking status: Unknown if ever smoked Exam - Vital Signs Vital Signs - 24 hr 11/15/22 14:00 11/15/22 20:00 11/15/22 21:27 Temperature 36.6 C 36.7 C Pulse Rate 78 78 70 Respiratory Rate 16 16 18 Blood Pressure 149/87 H 150/77 H Pulse Oximetry 99 99 99 Oxygen Delivery Room Air 11/16/22 06:00 11/16/22 07:45 Temperature 36.7 C Pulse Rate 71 Respiratory Rate 18 Blood Pressure 150/71 H Pulse Oximetry 99 Oxygen Delivery Room Air - Exam HEENT: EOMI, PERRLA, sclera clear Neck: supple. No: JVD Lungs: clear to auscultation, normal air movement Heart: no murmurs, gallops, or rubs, regular rhythm, regular rate Abdomen: abdomen soft, non-distended, normal bowel sounds Extremities: normal pulses Integumentary: no abnormalities Psychological: demented - Lab Results Laboratory Last Values WBC 5.0 K/mm3 (4.5-10.0) 11/16/22 05:19 RBC 4.35 M/mm3 (4.6-6.20) L 11/16/22 05:19 Hgb 13.0 g/dL (14.0-18.0) L 11/16/22 05:19 Hct 41.5 % (42.0-52.0) L 11/16/22 05:19 MCV 95.4 fl (80-100) D 11/16/22 05:19 MCH 29.9 pg (26-34) 11/16/22 05:19 MCHC 31.3 g/dl (32-36) L 11/16/22 05:19 RDW 12.8 % (11.5-14.5) 11/16/22 05:19 Plt Count 136 k/mm3 (150-375) L 11/16/22 05:19 MPV 9.8 fl (7.4-10.4) 11/16/22 05:19 Immature Gran % (Auto) 0.2 % (0-0.5) 11/14/22 10:30 Neut % (Auto) 66.0 % (45.5-73.1) 11/14/22 10:30 Lymph % (Auto) 25.0 % (18.3-44.2) 11/14/22 10:30 [place] % (Auto) 8.2 % (2.6-8.5) 11/14/22 10:30 Eos % (Auto) 0.4 % (0-4.4) 11/14/22 10:30 Baso % (Auto) 0.2 % (0.2-1.2) 11/14/22 10:30 Lymph # (Auto) 1.35 K/mm3 (0.9-3.2) 11/14/22 10:30 [place] # (Auto) 0.4 K/mm3 (0.1-0.6) 11/14/22 10:30 Eos # (Auto) 0.0 K/mm3 (0-0.3) 11/14/22 10:30 Baso # (Auto) 0.0 K/mm3 (0.0-0.1) 11/14/22 10:30 Abs Immat Gran (auto) 0.01 K/mm3 (0.00-0.031) 11/14/22 10:
[2022-11-16 14:00] VITALS: BP 144/89; PULSE 74; RESP 16; TEMP 36.1; O2SAT 100
--- NOTE | 2022-11-16 14:35 | PC.NURSE ---
Updated sibling Devorah on patient
[2022-11-16 16:19] LABS: EDCOVIDSCREEN Negative (Negative)
== END 2022-11-16 17:00 | disposition home or self-care (01) ==
LOC: ANHED 14:05 → ANH3MED 11-15 11:33
PROVIDERS: Nurse Practitioner; Physician Assistant; Admitting Provider Internal Medicine; Emergency Provider Emergency Medicine; Visit Provider Family Medicine
DX: R41.82 Altered mental status, unspecified (principal); D61.818 Other pancytopenia; I12.9 Hypertensive chronic kidney disease with stage 1 through stage 4 chronic kidney disease, or unspecified chronic kidney disease; N18.30 Chronic kidney disease, stage 3 unspecified; Z20.822 Contact with and (suspected) exposure to COVID-19; F20.9 Schizophrenia, unspecified; F03.90 Unspecified dementia, unspecified severity, without behavioral disturbance, psychotic disturbance, mood disturbance, and anxiety; E78.5 Hyperlipidemia, unspecified; R53.83 Other fatigue; R91.8 Other nonspecific abnormal finding of lung field; R79.89 Other specified abnormal findings of blood chemistry; Z86.79 Personal history of other diseases of the circulatory system; Z79.1 Long term (current) use of non-steroidal anti-inflammatories (NSAID); Z79.899 Other long term (current) drug therapy
CPT/HCPCS: 36415; 70450; 71045; 74018; 80048; 80053; 81001; 82140; 83605; 83735; 84100; 84443; 85025; 85027; 85055; 87426; 87636; 93005; 96361; 96372; 96374; 97161; 97165; 99285; A9270; C9803; G0378; G0379; J0360; J7030; J7120

== ENCOUNTER 2023-01-05 11:08 | Emergency (ER) | payer OTHER, SELFPAY ==
[2023-01-05] VITALS (7 sets, daily range): BP systolic 131–178; BP diastolic 86–105; PULSE 88–105; RESP 14–18; TEMP 36.8–37.1; O2SAT 98–100
--- NOTE | ~2023-01-05 | CT_ITS ---
EXAMINATION: CT brain wo con DATE: 01/05/2023 11:45 INDICATION: Altered mental status. Subdural hematoma. TECHNIQUE: Computed tomography (CT) of the head was performed without intravenous contrast. The mA wa s adjusted according to patient size. Iterative reconstruction technique was employed. The dose-lengt h product was 832.33 mGy-cm. COMPARISON: Head CT 11/13/2022 FINDINGS: There are scattered areas of low attenuation in the cerebral white matter. There is no acut e infarction or abnormal intracranial mass lesion. There is dural thickening versus small chronic sub dural hematoma overlying the left frontal lobe with maximum thickness of 2 mm. The ventricles are nor mal in size. There is mucosal thickening in the paranasal sinuses. The orbits are normal. The mastoid air cells are normal. There are bilateral parietal craniotomies. There is wire fixation of the floo r of the middle cranial fossa bilaterally. IMPRESSION: 1. Dural thickening versus chronic small subdural hematoma overlying left frontal lobe with maximum t hickness of 2 mm. 2. Stable moderate nonspecific cerebral white matter disease, which likely represents chronic small v essel ischemic disease. Reviewed, dictated and finalized at location A. IMPRESSION: 1. Dural thickening versus chronic small subdural hematoma overlying left front al lobe with maximum thickness of 2 mm. 2. Stable moderate nonspecific cerebral white matter disease, which likely repr esents chronic small vessel ischemic disease.
--- NOTE | ~2023-01-05 | XR_ITS ---
EXAMINATION: XR chest 1V portable DATE: 01/05/2023 11:34 INDICATION: Altered mental status. TECHNIQUE: A single frontal view of the chest was obtained. COMPARISON: Chest single view 11/13/2022, thoracic spine CT 09/05/2022 FINDINGS: There is new mild elevation of left hemidiaphragm. There is mild atelectasis in left lower lung zone. No pleural effusion or pneumothorax. The heart size is normal. IMPRESSION: 1. Mild atelectasis in left lower lung zone. Reviewed, dictated and finalized at location A.
--- NOTE | 2023-01-05 11:19 | ECG_ITS ---
Measurements Intervals [place] Rate: 104 P: 42 IA: 177 QRS: -7 QRSD: 88 T: 28 QT: 355 QTc: 468 Interpretive Statements SINUS TACHYCARDIA VOLTAGE CRITERIA FOR LVH BASELINE ARTIFACT- I, II, III, AVR, AVL, AVF, V1-V6 BORDERLINE ECG COMPARED TO ECG 11/13/2022 11:18:51 SINUS TACHYCARDIA NOW PRESENT Electronically Signed On 01-05-2023 12:31:14 CDT by Allen Campbell D.O.
[2023-01-05 12:04] LABS: Basophils Percent Auto 0.2 % (0.2-1.2); Hematocrit 37.3 % (42.0-52.0); Hemoglobin 12.2 g/dL (14.0-18.0); Immature Granulocyte Absolute 0.01 K/mm3 (0.00-0.031); Immature Granulocyte Percent A 0.2 % (0-0.5); Lymphocytes Absolute Auto 1.14 K/mm3 (0.9-3.2); Lymphocytes Percent Auto 20.6 % (18.3-44.2); Mean Corpuscular HGB Conc 32.7 g/dl (32-36); Mean Corpuscular Volume 91.9 fl (80-100); Mean Platelet Volume 9.3 fl (7.4-10.4); Monocytes Absolute Auto 0.5 K/mm3 (0.1-0.6); Monocytes Percent Auto 8.7 % (2.6-8.5); Neutrophils Absolute Auto 3.9 K/mm3 (1.3-6.7); Neutrophils Percent Auto 70.3 % (45.5-73.1); Platelet Count Result 168 k/mm3 (150-375); Red Blood Count 4.06 M/mm3 (4.6-6.20); Red Cell Distribution Width 12.7 % (11.5-14.5); White Blood Count 5.5 K/mm3 (4.5-10.0)
[2023-01-05 12:14] LABS: INR 1.1; Prothrombin Time 13.9 Seconds (11.1-14.7)
[2023-01-05 12:15] LABS: Partial Thromboplastin Time 34.3 SECONDS (22.3-36.8)
[2023-01-05 12:21] LABS: Amphetamine Screen Urine Negative (Negative); Barbiturate Screen Urine Negative (Negative); Benzodiazepines Screen Urine Negative (Negative); Cannabinoid Screen Urine Negative (Negative); Cocaine Screen Urine Negative (Negative); Methadone Screen Urine Negative (Negative); Opiate Screen Urine Negative (Negative); Phencyclidine Screen Urine Negative (Negative)
[2023-01-05 12:31] LABS: Alanine Aminotransferase 24 U/L (6-50); Alkaline Phosphatase 58 U/L (38-126); Anion Gap 6 mmol/L (8-16); Aspartate Amino Transferase 54 U/L (17-59); Bilirubin,Total 1.7 mg/dL (0.2-1.3); Blood Urea Nitrogen 19 mg/dL (9-20); Calcium 8.9 mg/dL (8.4-10.2); Carbon Dioxide 29 mmol/L (22-30); Chloride 100 mmol/L (98-107); Estimated Glomerular Filt Rate > 60; Glucose 147 mg/dL (65-110); Potassium 3.9 mmol/L (3.4-5.0); Sodium 135 mmol/L (137-145)
[2023-01-05 13:20] LABS: Appearance Urine Clear (Clear); Bacteria Urine None Seen /hpf; Bilirubin Urine Negative (Negative); Blood Urine Negative (Negative); Color Urine Yellow (Yellow); Glucose Urine UA Negative (Negative); Ketones Urine 1+ mg/dL (Negative); Leukocyte Esterase Ur 1+ LEU/UL (Negative); Nitrate Urine Negative (Negative); Non Pathogenic Casts 0-2; Protein Urine Trace mg/dL (Negative); RBC Urine 0-2 /hpf (0-2); Specific Grav Ur 1.022 (1.001-1.035); Squamous Epithelial Cell Urine None seen /hpf (Few); WBC Clumps Urine Present /HPF; WBC Urine 21-50 /hpf; pH Urine 6.5 (5.0-9.0)
[2023-01-05 13:46] LABS: Add Urine Microscopic? YES
--- NOTE | 2023-01-05 14:49 | ED.AMS ---
HPI - Altered Mental Status General Chief Complaint: Altered Mental Status Stated Complaint: weakness/ams/lethargy Time Seen by Provider: 01/05/23 11:09 History of Present Illness HPI narrative: Patient is a 67-year-old male who presents ER with increased lethargy. Patient is oriented x1 at baseline. He cannot give a history. Only report is that the snf says he seemed more confused over the last 36 hours. Related Data Home Medications Medication Instructions Recorded Confirmed bisacodyl 5 mg tablet,delayed 5 mg PO PRN PRN Constipation 09/04/22 11/13/22 release docusate sodium 100 mg capsule 100 mg PO BID 09/04/22 11/13/22 hydrochlorothiazide 12.5 mg tablet 12.5 mg PO DAILY 09/04/22 11/13/22 hydroxyzine pamoate 25 mg capsule 25 mg PO Q4-5H PRN Anxiety 09/04/22 11/13/22 losartan 25 mg tablet 25 mg PO DAILY 09/04/22 11/13/22 magnesium citrate (Citroma oral 30 ml PO PRN PRN Constipation 09/04/22 11/13/22 solution) magnesium hydroxide 400 mg/5 mL 30 ml PO PRN PRN Constipation 09/04/22 11/13/22 oral suspension (Milk of Magnesia) risperidone 0.5 mg tablet 1 mg PO PRN PRN Agitation 09/04/22 11/13/22 (Risperdal) risperidone 1 mg tablet (Risperdal) 2 mg PO HS 09/04/22 11/13/22 trazodone 50 mg tablet 75 mg PO HS 09/04/22 11/13/22 acetaminophen 325 mg tablet 650 mg PO PRN PRN Pain 11/13/22 11/13/22 atorvastatin 10 mg tablet 10 mg PO HS 11/13/22 11/13/22 melatonin 3 mg tablet,extended 3 mg PO HS 11/13/22 11/13/22 release bisacodyl 10 mg rectal suppository 10 mg RECTAL DAILY PRN Constipation 01/05/23 multivitamin with minerals-folic tablet PO 01/05/23 acid 0.4 mg tablet sodium phosphates 19 gram-7 ml RECTAL 01/05/23 gram/118 mL enema (Fleet Enema) Allergies Allergy/AdvReac Type Severity Reaction Status Date / Time No Known Allergies Allergy Verified 11/13/22 11:21 Review of Systems Review of Systems: ROS unobtainable: Yes unobtainable due to mental status PMFSH Past Medical History Medical History (Updated 01/05/23 @ 14:58 by Nahum Sears MD) Chronic renal failure, stage 3 (moderate) Delirium Dementia Hyperlipidemia Hypertension Rotator cuff tear Schizophrenia Surgical History Surgical History (Updated 11/16/22 @ 12:56 by Mina Coleman MD) S/P rotator cuff repair Family History Family History (Updated 11/13/22 @ 17:52 by Claudette Garcia NP) Unknown Family history unknown Social History Social History (Updated 11/13/22 @ 17:54 by Claudette Garcia NP) Social History: one daughter. The patient resides at [facility]. The patient is retired. He is single. Code status full code Smoking status: Unknown if ever smoked Alcohol intake: never Substance use: never Substance use type: does not use Spiritual care concerns: No Exam Narrative: GENERAL: Chronically ill-appearing, well-nourished, and in no acute distress. HEAD: Normocephalic, atraumatic. ENT: Mucous membranes moist. CHEST: Clear to auscultation. No respiratory distress. HEART: Tachycardic and regular.. Normal peripheral pulses. ABDOMEN: Soft, nontender, nondistended. EXTREMITIES: Normal range of motion. No edema. SKIN: Warm, dry, no rash. NEURO: Alert and oriented x1. Course Course Emergency Course: Patient resting comfortably. Urine has evidence of infection. Will give ceftriaxone and oral medication for home. Otherwise unremarkable evaluation. Vital Signs Vital signs: Vital Signs Temperature 98.4 F 01/05/23 11:07 Pulse Rate 100 01/05/23 11:07 Respiratory Rate 18 01/05/23 11:07 Blood Pressure 143/102 H 01/05/23 11:07 Pulse Oximetry 100 01/05/23 11:07 Temperature 98.8 F 01/05/23 11:12 Pulse Rate 101 H 01/05/23 13:40 Respiratory Rate 14 01/05/23 13:40 Blood Pressure 178/105 H 01/05/23 13:40 Pulse Oximetry 99 01/05/23 11:31 MDM - Altered Mental Status Lab Data 01/05/23 11:55 01/05/23 12:14
--- NOTE | 2023-01-05 15:10 | PC.NURSE ---
Attempted to call report to nurse at [facility] that cares for patient. Staff on phone stating the nurse told him to hold on . Staff given call back number and this RN name for report. Made aware patient is awaiting transport back to facility.
== END 2023-01-05 16:04 ==
PROVIDERS: Emergency Provider Emergency Medicine
DX: N39.0 Urinary tract infection, site not specified (principal); I12.9 Hypertensive chronic kidney disease with stage 1 through stage 4 chronic kidney disease, or unspecified chronic kidney disease; N18.30 Chronic kidney disease, stage 3 unspecified; F03.90 Unspecified dementia, unspecified severity, without behavioral disturbance, psychotic disturbance, mood disturbance, and anxiety; E78.5 Hyperlipidemia, unspecified
CPT/HCPCS: 36415; 70450; 71045; 80053; 80307; 81001; 85025; 85610; 85730; 87086; 93005; 96365; 99284; J0696